=== PATIENT | male | born 1970 | race Two or more races ===

== ENCOUNTER 2018-03-13 09:16 | Observation (INO) | payer BC ==
[~2018-03-13] VITALS: Ht 167.6 cm; Wt 119.0 kg
[~2018-03-13 09:16] MED LIST: ONDA4TAB7 PO; OXYC-306 PO
[2018-03-13] MEDS ORDERED: ASPIRIN 81 MG TABLET CHEW PO ONE (10:00)
[2018-03-13 10:11] LABS: BASOPHILS # (AUTO) 0.05 x10^3/uL (0-0.1); BASOPHILS % (AUTO) 1 % (0-1); EOSINOPHILS # (AUTO) 0.34 x10^3/uL (0-0.4); EOSINOPHILS % (AUTO) 4 % (1-7); LYMPHOCYTES # (AUTO) 1.63 x10^3/uL (1-3.4); LYMPHOCYTES % (AUTO) 17 % (22-44); MD NO; MEAN CORPUSCULAR HEMOGLOBIN 30.5 pg (27.5-34.5); MEAN CORPUSCULAR HGB CONC 34.3 g/dL (33.2-36.2); MEAN PLATELET VOLUME 8.5 fL (7.4-10.4); MONOCYTES # (AUTO) 0.56 x10^3/uL (0.2-0.8); MONOCYTES % (AUTO) 6 % (2-9); NEUTROPHILS # (AUTO) 7.06 x10^3/uL (1.8-6.8); NEUTROPHILS % (AUTO) 73 % (42-75); PLATELET COUNT 152 x10^3/uL (130-400); RED CELL DISTRIBUTION WIDTH 13.6 % (9.4-14.8)
[2018-03-13 10:20] LABS: ALANINE AMINOTRANSFERASE 58 U/L (12-78); ALBUMIN 3.7 g/dL (3.4-5.0); ANION GAP 9 mmol/L (5-15); CALCIUM 8.6 mg/dL (8.5-10.1); CHLORIDE 103 mmol/L (98-107); CREATININE 0.73 mg/dL (0.7-1.3)
[2018-03-13 10:25] LABS: ALKALINE PHOSPHATASE 83 U/L (45-117); BILIRUBIN,TOTAL 0.7 mg/dL (0.2-1.0); TOTAL PROTEIN 7.5 g/dL (6.4-8.2); TROPONIN I 0.075 ng/mL (0.000-0.045)
[2018-03-13] MEDS ORDERED: ASPIRIN 81 MG TABLET CHEW ONE (10:53)
[2018-03-13] MEDS ORDERED: SODIUM CHLORIDE FLUSH 10ML SYR IVF PRN (11:30)
[2018-03-13] MEDS ORDERED: LABETALOL 5MG/ML, 20ML IVPush PRN (12:00)
[2018-03-13 12:21] LABS: CHOLESTEROL, TOTAL 198 mg/dL (140-239); TRIGLYCERIDES 356 mg/dL (50-200); VLDL CHOLESTEROL 71 mg/dL (0-25)
[2018-03-13 12:24] LABS: CHOL/HDL RATIO 6.6; FREE T4 (FREE THYROXINE) 0.95 ng/dL (0.76-1.46); HDL CHOL % 15 % (26-37); HDL CHOLESTEROL (DIRECT) 30 mg/dL (40-60); LDL CHOLESTEROL,CALCULATED 97 mg/dL (54-169); LDL/HDL RATIO 3.2 (0.5-3.0); TROPONIN I 0.069 ng/mL (0.000-0.045)
[2018-03-13 13:01] LABS: HEMOGLOBIN A1C 7.4 % (4.2-6.3)
[2018-03-13 13:05] VITALS: BP 147/100
[2018-03-13] MEDS: ENOXAPARIN 40 MG/0.4 ML SQ SCH (13:47)
[2018-03-13 13:57] LABS: INTERNATIONAL NORMALIZED RATIO 1.01 (0.93-1.1); PROTHROMBIN TIME 10.7 Seconds (9.6-11.5)
[2018-03-13] MEDS ORDERED: DEXTROSE 50%, 50ML SYRINGE IVPush PRN (14:30)
[2018-03-13] MEDS ORDERED: LORazepam 1MG TABLET PO PRN ×4 (14:30)
[2018-03-13] MEDS ORDERED: GLUCAGON 1 MG IM PRN (14:30)
[2018-03-13] MEDS ORDERED: DEXTROSE 4 GM TAB.CHEW PO PRN (14:30)
[2018-03-13] MEDS ORDERED: LORazepam 2 MG/ML, 1ML IV PRN ×5 (14:30)
[2018-03-13] MEDS ORDERED: LORazepam 0.5MG TABLET PO PRN (14:30)
[2018-03-13] MEDS: POTASSIUM CHLORIDE 20 MEQ, MAGNESIUM SULFATE 1 GM, FOLIC ACID 1 MG, THIAMINE 200 MG, MV... IV SCH (14:48)
[2018-03-13] MEDS: INSULIN LISPRO 100 UNITS/ML, PEN SQ-INSULIN SCH ×2 (17:47→20:17)
[2018-03-13] MEDS: SODIUM CHLORIDE FLUSH 10ML SYR IVF SCH (20:18)
[2018-03-13 20:50] VITALS: BP 163/99
[2018-03-13 23:12] LABS: MICROSCOPIC NOT IND
[2018-03-13 23:21] LABS: CULTURE INDICATED? YES
[2018-03-14 00:39] VITALS: BP 144/88
[2018-03-14 05:22] LABS: BASOPHILS # (AUTO) 0.03 x10^3/uL (0-0.1); BASOPHILS % (AUTO) 0 % (0-1); EOSINOPHILS # (AUTO) 0.45 x10^3/uL (0-0.4); EOSINOPHILS % (AUTO) 5 % (1-7); LYMPHOCYTES # (AUTO) 1.83 x10^3/uL (1-3.4); LYMPHOCYTES % (AUTO) 22 % (22-44); MD NO; MEAN CORPUSCULAR HEMOGLOBIN 30.4 pg (27.5-34.5); MEAN CORPUSCULAR VOLUME 89.3 fL (81-97); MEAN PLATELET VOLUME 8.6 fL (7.4-10.4); MONOCYTES # (AUTO) 0.52 x10^3/uL (0.2-0.8); MONOCYTES % (AUTO) 6 % (2-9); NEUTROPHILS # (AUTO) 5.48 x10^3/uL (1.8-6.8); NEUTROPHILS % (AUTO) 66 % (42-75); PLATELET COUNT 135 x10^3/uL (130-400); RED BLOOD COUNT 5.62 x10^6/uL (4.38-5.82); RED CELL DISTRIBUTION WIDTH 13.4 % (9.4-14.8)
[2018-03-14 05:34] LABS: ALANINE AMINOTRANSFERASE 55 U/L (12-78); ALBUMIN 3.2 g/dL (3.4-5.0); ANION GAP 7 mmol/L (5-15); CALCIUM 8.1 mg/dL (8.5-10.1); CHLORIDE 103 mmol/L (98-107)
[2018-03-14 05:45] LABS: ALKALINE PHOSPHATASE 80 U/L (45-117); BILIRUBIN,TOTAL 0.5 mg/dL (0.2-1.0); CREATININE 0.74 mg/dL (0.7-1.3); TOTAL PROTEIN 7.4 g/dL (6.4-8.2)
[2018-03-14] MEDS: INSULIN LISPRO 100 UNITS/ML, PEN SQ-INSULIN SCH ×2 (07:00→12:42)
[2018-03-14 08:01] VITALS: BP 142/94
[2018-03-14] MEDS ORDERED: REGADENOSON 0.4 MG/5 ML SYRINGE ONE (10:20)
[2018-03-14 14:00] VITALS: BP 143/85
[2018-03-14] MEDS: POTASSIUM CHLORIDE 20 MEQ, MAGNESIUM SULFATE 1 GM, FOLIC ACID 1 MG, THIAMINE 200 MG, MV... IV SCH (14:49)
[2018-03-14] MEDS: ENOXAPARIN 40 MG/0.4 ML SQ SCH (14:49)
[2018-03-14] MEDS: SODIUM CHLORIDE FLUSH 10ML SYR IVF SCH (14:49)
[2018-03-14] MEDS ORDERED: FOLI-17 PO (15:23)
[2018-03-14] MEDS ORDERED: THIA100T10 PO (15:23)
[2018-03-14] MEDS ORDERED: METF500T PO (15:23)
== END 2018-03-14 17:17 | disposition home or self-care (01) ==
LOC: ED 11:15 → INTOOBSV 11:19 → EDIP 11:19 → 5SO 12:25 → DCLOUNGE 03-14 16:56
PROVIDERS: ADMIT Hospitalist; ATTEND Hospitalist
DX: H53.8 Other visual disturbances (principal); R07.89 Other chest pain; D75.1 Secondary polycythemia; R79.89 Other specified abnormal findings of blood chemistry; E11.9 Type 2 diabetes mellitus without complications; E66.01 Morbid (severe) obesity due to excess calories; E78.1 Pure hyperglyceridemia; I10 Essential (primary) hypertension; F17.210 Nicotine dependence, cigarettes, uncomplicated; K21.9 Gastro-esophageal reflux disease without esophagitis
CPT/HCPCS: 36415; 70450; 71046; 78452; 80053; 80061; 81003; 82962; 83036; 83735; 84100; 84439; 84443; 84484; 85025; 85610; 93005; 93017; 93306; 96365; 96366; 96372; 99284; A9502; C9898; G0378; J1650; J1815; J2785; J3411; J3475; J3480; J7042; 99285